=== PATIENT | female | born 1975 | race African-American/Black ===

== ENCOUNTER 2017-08-07 20:08 | Emergency (ER) | payer MEDICAID, OTHER ==
[~2017-08-07] VITALS: Ht 160 cm; Wt 71.4 kg
[~2017-08-07 20:08] MED LIST: EFAV1TAB4 PO; HYDR-3498 PO; MUPI22OI2 TOP; SERT25TA PO; SULF1TAB31 PO
[2017-08-07 20:11] VITALS: Ht 160 cm; Wt 71.4 kg
[2017-08-07] MEDS ORDERED: ONDANSETRON (ODT) 4 MG TAB ODT STA (23:36)
--- NOTE | 2017-08-07 23:46 | ERD ---
ER Documentation Chief Complaint Chief Complaint pt reports nausea x 1 month generalized body pain HPI 42-year-old female presents here to emergency department for complaints of generalized abdominal pain nausea vomiting diarrhea on and off fever and body aches on and off for the last 1 month. Patient is complaining of generalized abdominal pain cramping pain, 4/10 scale, not better or worse with anything. Patient does not have any hematuria or dysuria. Patient does not have any fever or chills. ROS All systems reviewed and are negative except as per history of present illness. Medications Home Meds Active Scripts Sulfamethoxazole-Trimethoprim (Bactrim DS Tablet) 800-160 Mg Tab, 1 TAB PO BID, #20 TAB Prov:ANN SHEFFIELD MD 04/08/16 Mupirocin* (Bactroban*) 2% -22 Gram Oint...g., 1 APPLIC TOP BID for 5 Days, TUB Prov:ANN SHEFFIELD MD 04/08/16 Hydrocodone Bit/Acetaminophen (Anexsia 5-325 Mg Tablet) 1 Tab Tablet, 1 TAB PO Q6H Y for MODERATE PAIN LEVEL 4-6 for 10 Days, #40 TAB Prov:ANN SHEFFIELD MD 04/08/16 Reported Medications Sertraline Hcl* (Zoloft*) 25 Mg Tablet, 25 MG PO DAILY, #30 TAB 04/03/16 Nsqzrwjhe-Mbqqgzrvntout-Cbiqyzdjp (Atripla) 600-200-300 Mg Tablet, 1 TAB PO DAILY, TAB 04/03/16 Allergies Allergies: Coded Allergies: No Known Allergy (Unverified , 07/29/14) PMhx/Soc History of Surgery: Yes (R LE surgery) Anesthesia Reaction: No Hx Neurological Disorder: No Hx Respiratory Disorders: Yes (asthma) Hx Cardiac Disorders: No Hx Psychiatric Problems: Yes (depression) Hx Miscellaneous Medical Probl: Yes (HIV, depression, h/o drug abuse) Hx Alcohol Use: Yes Hx Substance Use: Yes Hx Tobacco Use: Yes FmHx Family History: No coronary disease, No diabetes, No other Physical Exam Vitals Vital Signs Date Time Temp Pulse Resp B/P Pulse Ox O2 Delivery O2 Flow Rate FiO2 08/07/17 20:11 99.3 98 16 167/74 100 Physical Exam GENERAL: The patient is well developed and appropriate for usual state of health, in no apparent distress. CHEST: Clear to auscultation bilaterally. There are no rales, wheezes or rhonchi. HEART: Regular rate and rhythm. No murmurs, clicks, rubs or gallops. No S3 or S4. ABDOMEN: Soft, nontender and nondistended. Hyperactive bowel sounds. No rebound or guarding. No gross peritonitis. No gross organomegaly or masses. No Sorto sign or McBurney point tenderness. BACK: No midline or flank tenderness. EXTREMITIES: Equal pulses bilaterally. There is no peripheral clubbing, cyanosis or edema. No focal swelling or erythema. Full range of motion. Grossly neurovascularly intact. NEURO: Alert and oriented. Cranial nerves 2-12 intact. Motor strength in all 4 extremities with 5/5 strength. Sensation grossly intact. Normal speech and gait. SKIN: There is no apparent rash or petechia. The skin is warm and dry. HEMATOLOGIC AND LYMPHATIC: There is no evidence of excessive bruising or lymphedema. No gross cervical, axillary, or inguinal lymphadenopathy. Results 24 hrs Laboratory Tests Test 08/08/17 00:25 White Blood Count Pending Red Blood Count Pending Hemoglobin Pending Hematocrit Pending Mean Corpuscular Volume Pending Mean Corpuscular Hemoglobin Pending Mean Corpuscular Hemoglobin Concent Pending Red Cell Distribution Width Pending Platelet Count Pending Mean Platelet Volume Pending Current Medications Medications (Trade) Dose Ordered Sig/Mari Route PRN Reason Start Time Stop Time Status Last Admin Dose Admin Ondansetron HCl (Zofran Odt) 4 mg ONCE STAT ODT 08/07/17 23:36 08/07/17 23:38 DC 08/07/17 23:50 Dicyclomine HCl (Bentyl) 20 mg ONCE ONCE PO 08/08/17 00:00 08/08/17 00:01 DC 08/07/17 23:50 Patient was given Zofran here in the emergency department. After treatment, patient was able to tolerate po fluids here in the emergency department without any vomiting. There is no signs and symptoms of dehydration. Bentyl was given here in emergency department. Patient eloped prior to getting blood draw and CT scan, patient took up her IV line, refused to sign AMA form, and walked out of the department. Patient was stable and appears to be stable upon walking out of the department. Procedures/MDM Medical Decision Making: Patient walked out of the department before laboratory test results and radiology exams. Per patient symptoms, patient is vomiting diarrhea on and off, most likely is viral in origin. No symptoms of dehydration , was ambulatory without any symptoms of any sepsis or acute abdominal emergencies prior to leaving here in the emergency department. Abdominal exam was normal. Disposition: Eloped. Stable. Disclaimer: Inadvertent spelling and grammatical errors are likely due to EHR/ dictation software use and do not reflect on the overall quality of patient care. Also, please note that the electronic time recorded on this note does not necessarily reflect the actual time of the patient encounter. Departure Diagnosis: Primary Impression: Abdominal pain Abdominal location: unspecified location Qualified Code: R10.9 - Abdominal pain, unspecified abdominal location Condition: Stable THANIA FERNANDEZ NP Aug 07, 2017 23:46
[2017-08-08] MEDS ORDERED: DICYCLOMINE 10 MG CAP PO ONE
[2017-08-08 00:55] LABS: BASOPHILS % 0.5 % (0.0-2.0); EOSINOPHILS # 0.1 10^3/ul (0.0-0.5); HEMOGLOBIN 11.5 g/dl (12.0-16.0); LYMPHOCYTES % 38.1 % (15.0-51.0); MEAN CORPUSCULAR HGB CONC 32.9 g/dl (32.0-37.0); MEAN CORPUSCULAR VOLUME 85.2 fl (82.0-101.0); MEAN PLATELET VOLUME 9.4 fl (7.4-10.4); MONOCYTE # 0.5 10^3/ul (0.3-0.9); MONOCYTES % 6.3 % (0.0-11.0); NEUTROPHIL # 4.2 10^3/ul (1.6-7.5); PLATELET COUNT 250 10^3/UL (140-415); RED BLOOD COUNT 4.11 10^6/ul (4.20-5.40); RED CELL DISTRIBUTION WIDTH 14.3 % (11.5-14.5); WHITE BLOOD COUNT 7.8 10^3/ul (4.8-10.8)
[2017-08-08 01:25] LABS: ALBUMIN 3.7 g/dl (3.3-4.9); ALBUMIN/GLOBULIN RATIO 0.97; BILIRUBIN,INDIRECT 0.2 mg/dl (0-1.1); BILIRUBIN,TOTAL 0.2 mg/dl (0.2-1.3); CALCIUM 9.3 mg/dl (8.4-10.2); CREATININE 0.74 mg/dl (0.44-1.00); POTASSIUM 3.2 mmol/L (3.5-5.1); TOTAL PROTEIN 7.5 g/dl (6.1-8.1)
== END 2017-08-08 00:38 | disposition left against medical advice (07) ==
LOC: FTE 20:08
DX: R10.84 Generalized abdominal pain (principal); J45.909 Unspecified asthma, uncomplicated; R11.2 Nausea with vomiting, unspecified; Z87.891 Personal history of nicotine dependence
CPT/HCPCS: 80053; 83690; 85025; Z7610; 36415; 99283